=== PATIENT | female | born 1990 | race Caucasian/White ===

== ENCOUNTER 2018-05-04 02:32 | Inpatient (IN) ==
[2018-05-04 02:08] LABS: Amphetamine Screen,Urine Negative ng/mL (Cutoff=1000); Barbiturate Screen,Urine Negative ng/mL (Cutoff=200); Benzodiazepines Screen,Urine Negative ng/mL (Cutoff=200); Cannabinoid Screen,Urine Negative ng/mL (Cutoff = 50); Cocaine Screen,Urine Negative ng/mL (Cutoff= 300); Opiate Screen,Urine Negative ng/mL (Cutoff=300); Phencyclidine Screen,Urine Negative ng/mL (Cutoff=25)
[~2018-05-04 02:32] MED LIST: Famotidine 20 MG/2 ML VIAL IVP PRN; Metoclopramide 10 MG/2 ML VIAL IVP PRN; Naloxone 0.4 MG/ML INJ IVP PRN; Ringers Solution, Lactated 1,000 ML ONE
[2018-05-04] MEDS ORDERED: Bupivacaine-MPF 0.25% 10 ML VIAL EP ONE (02:45)
[2018-05-04] MEDS ORDERED: *HR* FentaNYL (PF) 100 MCG/2 ML VIAL EP ONE (02:45)
[2018-05-04] MEDS ORDERED: Epidural Premix (fent/bupiv) 110 ML EP SCH (02:45)
[2018-05-04] MEDS ORDERED: Ringers Solution, Lactated 1,000 ML IVC SCH (02:45)
--- NOTE | 2018-05-04 02:46 | OB/GYN History & Physical ---
Date of Encounter: 05/04/18 Time of Encounter: 02:41 Assessment and Plan (1) 39 weeks gestation of Current visit: Yes Status: Acute (2) Intrauterine Current visit: Yes Status: Acute Admit to L&D for observation of labor Expectant management Labs-CBC and clot to hold Continuous electronic monitoring Pain management plan is epidural Anticipate Dr. Stephenson is OB doll surgeon and is available as needed (3) Hepatitis C antibody test positive Current visit: Yes Status: Acute (4) complicated by subutex maintenance, antepartum Current visit: Yes Status: Acute Continue Subutex twice a day (5) Intact amniotic membranes during in third trimester Current visit: Yes Status: Acute History of Present Illness Chief complaint: Contraction HPI: Ms. Parisi is a 27 year old female 001 at 39 weeks 4 days gestation with an estimated date of of 05/07/18 dated by initial exam. She presents tonight with complaints of onset of contractions at noon on . She reports admit an 8 they became 3-5 minutes apart. Reports her membranes are intact. Her has been complicated by Suboxone use. She is also a smoker. She has been seen by Dr. Becerra throughout this . records are available electronically and have been reviewed. Labs: O+ GBS- Hep B- HIV- Rubella immune Varicella immune Past Med Surg Social Fam HX - Past Medical History Medical history: hepatitis Additional medical history: hep c Psychiatric history: no psych history - Past Surgical History Surgical History: no surgical history - Social History Smoking Status: Current every day smoker Packs per day: 1 Alcohol use: none Drug use: IV Drug Use - Family History Mother Age: 47 Living Status: Still Living Hx Family Cardiac Disorders: Yes (high chol) Hx Family Respiratory Disorders: No Hx Family Cancer: No Hx Family GI Disorders: No Hx Family Genitourinary Disorders: No Hx Family Endocrine Disorder: No Hx Family Musculoskeletal Disorders: No Hx Family Neuromuscular Disorders: No Hx Family Neurologic Disorders: No Hx Family HEENT Disorders: No Hx Family Autoimmune Disorders: No Hx Family Reproductive Disorders: No Hx Family Psychosocial Disorders: No Hx Family Medical Disorders: No Obstetrical History - Pregnancies : 2 Para: 1 Term: 1 (# 1: 07/12/2014,female, normal spontaneous vaginal delivery (), full term, no complications, 6lbs 4oz. ) : 0 Ab's: 0 Livin Medications and Allergies Formula Tablet 1 tab PO DAILY 05/04/18 [History] Suboxone 8 mg-2 mg Sl Film 8 mg SL BID 05/04/18 [History] 3 Allergy/AdvReac Type Severity Reaction Status Date / Time No Known Allergies Allergy Verified 05/04/18 01:46 Review of System OB All systems PM: reviewed and no additional remarkable complaints except as stated Exam - Vital Signs Vital signs: Initial Vital Signs Temp Pulse Resp BP 97.5 F L 93 15 127/82 05/04/18 01:30 05/04/18 01:30 05/04/18 01:30 05/04/18 01:30 - Constitutional Constitutional: well developed, well nourished, moderate distress - HEENT HEENT: PERRL, Normocephaly, Mucus Membranes Moist - Neck Neck exam: full ROM - Lungs Respiratory exam: CTAB - Cardiovascular Cardiovascular exam: RRR, +S1, +S2 - Breasts Breast: bilateral: normal - Abdomen Abdomen: Present: bowel sounds normal, gravid, non tender - Vulva Vulva: bilateral: normal - Vagina Vagina: Present: normal moisture - Cervix Dilation: 6 Results Result Diagrams: 05/04/18 02:58 All other labs normal. - VTE Reasons for not Prescribing Prophylaxis: Treatment not Indicated - Low risk for VTE
[2018-05-04] MEDS ORDERED: Lidocaine -MPF 2% 5 ML VIAL ONE (02:49)
[2018-05-04] MEDS ORDERED: Bupivacaine-MPF 0.25% 10 ML VIAL ONE (02:49)
[2018-05-04] MEDS ORDERED: Lidocaine/EPI 1:200k 2% PF 20 ML VIAL ONE (02:49)
[2018-05-04] MEDS ORDERED: *HR* FentaNYL (PF) 100 MCG/2 ML VIAL ONE (02:49)
[2018-05-04 03:01] LABS: Basophils % 0.2 %; Eosinophils % 0.3 %; Hematocrit 36.7 % (35.3-44.9); Hemoglobin 12.6 g/dL (11.5-15.4); Immature Granulocytes % 0.3 % (0-4); Lymphocytes # 3.2 K/mcL (0.6-4.6); Lymphocytes % 27.4 %; Mean Corpuscular HGB Conc 34.3 g/dL (31.6-35.5); Mean Corpuscular Hemoglobin 30.3 pg (28.0-33.3); Mean Corpuscular Volume 88.2 fL (83.0-100.0); Mean Platelet Volume 13.5 fL (9.4-12.4); Monocytes # 0.5 K/mcL (0.0-1.3); Monocytes % 4.7 %; Neutrophils # 7.7 K/mcL (1.6-8.9); Platelet Count 184 K/mcL (140-400); Red Blood Count 4.16 M/mcL (3.82-4.97); Red Cell Distribution Width 13.4 % (11.5-14.5); Segmented Neutrophils % 67.1 %
[2018-05-04 03:03] LABS: Platelet Estimate Normal (Normal)
[2018-05-04] MEDS ORDERED: Oxytocin 20 units/ LR 1000 mL 20 UNIT/1,000 ML BAG IVC ONE (03:37)
--- NOTE | 2018-05-04 03:43 | Anesthesia Evaluation PreOp ---
Date of Encounter: 05/04/18 Time of Encounter: 02:51 - Past History Planned Operation: labor epidural Cardiac History: Denies any Significant Hx Pulmonary History: Smoker (smokes 1/2ppd. 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 No FHAP. Previous epidural without problems.) : Yes Alcohol Use: none Drug use: IV Drug Use Medications and Allergies Formula Tablet 1 tab PO DAILY 05/04/18 [History] Suboxone 8 mg-2 mg Sl Film 8 mg SL BID 05/04/18 [History] 3 Allergy/AdvReac Type Severity Reaction Status Date / Time No Known Allergies Allergy Verified 05/04/18 01:46 - Meds/Allergy Pre-op Review Medications Reviewed: Yes Allergies Reviewed: Yes Beta Blockers on Current Med List: No Anesthesia Results - Labs 05/04/18 02:58 Anesthesia Exam 127/82, 96, 20. FHTs 130s. Height: 5'5" Weight: 63kg NPO (# of Hours): 8 Pain Scale: 10 Pain Scale Used: Numeric (1 - 10) - HEENT Pupil (Motor): Pupils equal Mallampati: II Teeth: Normal Oral Opening: Greater than 3 - SOLID W[employer]E FACILITY OPERATOR LOC: Oriented [employer]ID W[employer]E FACILITY OPERATOR Motor: Normal RUE, Normal LUE, Normal RLE, Normal LLE, Normal Face [employer] W[employer]E FACILITY OPERATOR Sensory: Normal: RUE, LUE, RLE, LLE, Face - Cardiac Rhythm: Regular - Pulmonary Breath Sounds: bilateral Clear Respiratory Effort: Symmetrical Anesthesia Assess/Plan ASA Score: 2 Modified Carmenza Scale for Level of Consciousness: Cooperative, oriented, and tranquil Anesthetic Plan: Regional Monitoring Plan: Standard Monitors
--- NOTE | 2018-05-04 03:47 | Anesthesia Procedures ---
Date of Encounter: 05/04/18 Time of Encounter: 02:51 Procedures: Anesthesia - Epidural/Spinal Patient ID/Chart reviewed: Yes Patient examined: Yes OB Eval: Gestational age: 39 OB Eval: : 2 OB Eval: Hx Para: 1 OB Eval: Dilated at (cm): 6 OB Eval: Contractions: Non-stressed pattern Consent Obtained: Yes Supplemental Oxygen: None/Room Air Site Prep: Aseptic Technique, Sterile prep and drape, Povidone-Iodine 1% Amount of Local Anesthetic used: 3 Touhy Needle Gauge: 18 Touhy Needle Depth (cm): 5 Catheter Depth at Skin (cm): 15 Test Dose (1.5% Lido + Epi): Volume given (mls): 3 Test Dose Result: Negative Loading Dose: 0.25% Marcaine (mls): 8 Loading Dose: Fentanyl (mcg): 100 Loading Dose Administered: Thru Catheter Infusion Med: 0.125% Bupivacaine w/ 2 mcg/ml Fentanyl Infusion Rate (mls/hr): [address]: Tegaderm, Tape Interspace Used: L3-L4 Loss of Resistance (ELSA): Yes Blood: No CSF: No Paresthesia: No Vitals + FHT's: 3 Vital Signs Time 0251 0311 0315 0320 0325 BP 127/82 129/98 121/68 132/70 121/66 Pulse 96 79 86 78 69 FHTs 130 130 130 130 130
--- NOTE | 2018-05-04 04:47 | OB/GYN Procedure Note ---
Delivery - Delivery Date: 05/04/18 Provider: Karolina Loo Intrapartum events: none Delivery induction: none Delivery augmentation: rupture of membranes Delivery monitor: external FHT, external uterine Anesthesia: epidural Quantitated Blood Loss: 300 - Infant (s) Infant A Infant Delivery Date: 05/04/18 Infant Delivery Time: 04:00 Presentation: vertex Position: YAEL (long arc rotation) Route of delivery: Gender: Male Viability: Viable Pounds: 7 Ounces: 1 Weight Gram: 3.205 kg at 1 minute: 8 at 5 mins: 9 Shoulder Dystocia: not encountered Specimens collected: cord blood Placenta: spontaneous Cord: 3 umbilical vessels - Repair Episiotomy: none Laceration Description: Labial (right - repaired with 4-0 monocryl) - Complications Delivery complications: none Delivery comments: This is a 27-year-old G2 now P2 who is admitted for active labor. She progressed with AROM to the second stage of labor. She pushed for 30 minutes. She delivered a viable male infant "YAEL Blackman over an intact perineum. The infant was placed on the maternal abdomen where he was allowed to transition spontaneously. No nuchal cord was identified. No shoulder dystocia was encountered. scores were 8 at 1 minute and 9 at 5 minutes. The weighed 7 lbs. 1 oz. (3205 g). The placenta delivered (Herrera) spontaneously, intact, with a three-vessel cord. Inspection revealed a right reveals laceration. Laceration was repaired with a 4-0 Monocryl. The uterus was firm with no active bleeding. The repair was done under epidural anesthesia. EBL was 300 mL. Placenta and umbilical artery blood gases were not sent. There were no complications during the procedure. Mom and baby are skin to skin following delivery. - Disposition Mom disposition: stable in LDR Roberta disposition: stable in LDR
[2018-05-04] MEDS ORDERED: Acetaminophen 325 MG TABLET PO PRN (06:50)
[2018-05-04] MEDS ORDERED: Oxytocin 20 units/ LR 1000 mL 20 UNIT/1,000 ML BAG IVC SCH (06:50)
[2018-05-04] MEDS: Ibuprofen 600 MG TABLET PO PRN ×2 (08:13→15:11)
[2018-05-04] MEDS: Prenatal Vit/FA 1 EACH TABLET PO SCH (08:13)
[2018-05-05 08:02] VITALS: BP 116/62
[2018-05-05] MEDS: Prenatal Vit/FA 1 EACH TABLET PO SCH (08:15)
[2018-05-05] MEDS: Ibuprofen 600 MG TABLET PO PRN (08:19)
--- NOTE | 2018-05-05 09:50 | Discharge Summary ---
Date of Encounter: 05/05/18 Time of Encounter: 09:47 - Discharge Diagnosis (1) Vaginal delivery Priority: Primary Status: Acute Comments: Stable in PP, pain well managed on po pain medication, tolerates diet, bottle feeding, desires discharge - Discharge Medications Prescriptions: Ibuprofen [Motrin] 600 mg PO Q6HR PRN #60 tablet PRN Reason: Cramping Docusate [Colace] 100 mg PO BID #30 capsule Home Medications: Formula Tablet 1 tab PO DAILY 05/04/18 [History] Suboxone 8 mg-2 mg Sl Film 8 mg SL BID 05/04/18 [History] Acetaminophen [Tylenol] 650 mg PO Q6HR PRN tablet 05/05/18 [Rx] Docusate [Colace] 100 mg PO BID #30 capsule 05/05/18 [Rx] Ibuprofen [Motrin] 600 mg PO Q6HR PRN #60 tablet 05/05/18 [Rx] Vit/FA 1 each PO DAILY tablet 05/05/18 [Rx] Allergies/Adverse Reactions: 3 Allergy/AdvReac Type Severity Reaction Status Date / Time No Known Allergies Allergy Verified 05/04/18 01:46 Data Procedures and tests throughout hospitalization: Laboratory Tests 05/04/18 05/04/18 01:26 02:58 WBC 11.5 H RBC 4.16 Hgb 12.6 Hct 36.7 MCV 88.2 MCH 30.3 MCHC 34.3 RDW 13.4 Plt Count 184 MPV 13.5 H Immature Gran % 0.3 Seg Neutrophils % 67.1 Lymphocytes % 27.4 Monocytes % 4.7 Eosinophils % 0.3 Basophils % 0.2 Neutrophils # 7.7 Lymphocytes # 3.2 Monocytes # 0.5 Eosinophils # 0.0 Basophils # 0.0 Platelet Estimate Normal Urine Opiates Screen Negative Ur Barbiturates Screen Negative Ur Phencyclidine Scrn Negative Ur Amphetamines Screen Negative U Benzodiazepines Scrn Negative Urine Cocaine Screen Negative U Marijuana (THC) Screen Negative Ur Drug Screen Interp See Below Date of admission: 05/04/18 02:32 Primary care physician: PCP NONE Consults: 05/04/18 06:50 Consult to [facility] [CONS] Routine Comment: Vaginal delivery, consult needed Discharging clinician: Sosa Serrano Anticipated date of discharge: 05/05/18 - Patient Status Disposition: Home, Self-Care Condition: Good Functional capacity at discharge: independent ambulation Overall status at discharge: patient is progressing back to baseline - Discharge Instructions Follow Up With: NONE,PCP [Primary Care Provider] - Yoko Savage MD [Partnered Physician] - - Diet and Activity Activity: resume usual activities as tolerated Diet: regular diet Hospital Course Reason for admission: active labor Delivery: Episiotomy: none Laceration: other Other procedures: none complications: none Discharge diagnosis: IUP at term delivered [place] baby: male Hospital course: Delivery - Delivery Date: 05/04/18 Provider: Karolina Loo Intrapartum events: none Delivery induction: none Delivery augmentation: rupture of membranes Delivery monitor: external FHT, external uterine Anesthesia: epidural Quantitated Blood Loss: 300 - (s) A Infant Delivery Date: 05/04/18 Infant Delivery Time: 04:00 Presentation: vertex Position: YAEL (long arc rotation) Route of delivery: Gender: Male Viability: Viable Pounds: 7 Ounces: 1 Weight Gram: 3.205 kg at 1 minute: 8 at 5 mins: 9 Shoulder Dystocia: not encountered Specimens collected: cord blood Placenta: spontaneous Cord: 3 umbilical vessels - Repair Episiotomy: none Laceration Description: Labial (right - repaired with 4-0 monocryl) - Complications Delivery complications: none Delivery comments: This is a 27-year-old G2 now P2 who is admitted for active labor. She progressed with AROM to the second stage of labor. She pushed for 30 minutes. She delivered a viable male "Hua"YAEL over an intact perineum. The infant was placed on the maternal abdomen where he was allowed to transition spontaneously. No nuchal cord was identified. No shoulder dystocia was encountered. scores were 8 at 1 minute and 9 at 5 minutes. The weighed 7 lbs. 1 oz. (3205 g). The placenta delivered (Herrera) spontaneously, intact, with a three-vessel cord. Inspection revealed a right reveals laceration. Laceration was repaired with a 4-0 Monocryl. The uterus was firm with no active bleeding. The repair was done under epidural anesthesia. EBL was 300 mL. Placenta and umbilical artery blood gases were not sent. There were no complications during the procedure. Mom and baby are skin to skin following delivery. - Disposition Mom disposition: stable in PP and appropriate for discharge Time Attestation: Total time spent providing and/or coordinating discharge services: Time Spent: Less than 30 minutes Exam - Constitutional Vitals: Temp Pulse Resp BP Pulse Ox 97.6 F 62 16 116/62 99 05/05/18 08:00 05/05/18 08:00 05/05/18 08:00 05/05/18 08:00 05/05/18 04:00 General appearance IM: A&O X 3 - Respiratory Respiratory exam: Present: CTAB - Cardiovascular Cardiovascular exam IM: Present: RRR - GI/Abdominal GI/Abdominal exam IM: soft - Uterine Tone: Firm Uterus Position: 3 Fingers Below Umbilicus - Extremities Exam Extremities exam IM: Present: normal capillary refill, normal inspection - Neurological Exam Neurological exam: normal gait, oriented X3 - Psychiatric Additional comments: reports good mood
== END 2018-05-05 12:30 | disposition home or self-care (01) | DRG 560 ==
LOC: 1NENULAB → 1NENUOBS 06:43
PROVIDERS: ADMIT Advanced Practice Midwife; ATTEND Advanced Practice Midwife

== ENCOUNTER 2020-10-20 07:53 | Inpatient (IN) ==
[2020-10-20] MEDS ORDERED: Famotidine 20 MG/2 ML VIAL IVP PRN (08:46)
[2020-10-20] MEDS ORDERED: Metoclopramide 10 MG/2 ML VIAL IVP PRN (08:46)
[2020-10-20] MEDS ORDERED: Naloxone 0.4 MG/ML INJ IVP PRN (08:46)
[2020-10-20] MEDS ORDERED: Azithromycin 500 MG in 0.9 % Sodium Chloride 250 ML IVPB PRN (08:46)
[2020-10-20] MEDS ORDERED: Lidocaine 1% 20 ML MDV INFILT PRN (08:46)
[2020-10-20] MEDS ORDERED: Ondansetron 4 MG/2 ML VIAL IVP PRN (08:46)
[2020-10-20] MEDS ORDERED: miSOPROStoL 25 MCG TABLET PO PRN (08:50)
[2020-10-20] MEDS ORDERED: Penicillin G Potassium 5,000,000 UNIT in 0.9 % Sodium Chloride Mini Bag 100 ML IVPB ONE (08:51)
[2020-10-20] MEDS ORDERED: Oxytocin 20 units/ LR 1000 mL 20 UNIT/1,000 ML BAG IVC SCH ×2 (09:00→21:00)
[2020-10-20 09:31] LABS: Basophils % 0.3 %; Eosinophils # 0.1 K/mcL (0.0-0.6); Eosinophils % 1.7 %; Hemoglobin 10.9 g/dL (11.5-15.4); Immature Granulocytes % 0.9 % (0-4); Lymphocytes # 2.2 K/mcL (0.6-4.6); Lymphocytes % 33.6 %; Mean Corpuscular HGB Conc 34.1 g/dL (31.6-35.5); Mean Corpuscular Hemoglobin 30.4 pg (28.0-33.3); Mean Corpuscular Volume 89.4 fL (83.0-100.0); Monocytes # 0.5 K/mcL (0.0-1.3); Monocytes % 6.9 %; Neutrophils # 3.8 K/mcL (1.6-8.9); Platelet Count 191 K/mcL (140-400); Red Blood Count 3.58 M/mcL (3.82-4.97); Red Cell Distribution Width 14.1 % (11.5-14.5); Segmented Neutrophils % 56.6 %; White Blood Count 6.6 K/mcL (4.3-11.1)
[2020-10-20] MEDS: Ringers Solution, Lactated 1,000 ML IVC SCH ×3 (09:37→17:51)
[2020-10-20 10:18] LABS: Amphetamine Screen,Urine Negative ng/mL (Cutoff=1000); Barbiturate Screen,Urine Negative ng/mL (Cutoff=200); Benzodiazepines Screen,Urine Negative ng/mL (Cutoff=200); Cannabinoid Screen,Urine Negative ng/mL (Cutoff = 50); Cocaine Screen,Urine Negative ng/mL (Cutoff= 300); Opiate Screen,Urine Negative ng/mL (Cutoff=300); Phencyclidine Screen,Urine Negative ng/mL (Cutoff=25)
[2020-10-20] MEDS ORDERED: EPHEDrine 50 MG/ML VIAL IVP PRN (10:56)
[2020-10-20] MEDS ORDERED: *HR* FentaNYL (PF) 100 MCG/2 ML VIAL EP ONE (10:56)
[2020-10-20] MEDS ORDERED: Ropivacaine/PF 0.2% 20 ML VIAL EP ONE (10:56)
[2020-10-20] MEDS ORDERED: Epidural Premix (fent/bupiv) 110 ML EP SCH (11:00)
[2020-10-20 11:04] LABS: Influenza A PCR Negative (Negative); Influenza B PCR Negative (Negative); Resp. Syncytial Virus PCR Negative (Negative); SARS-CoV-2 by PCR (In House) Negative (Negative)
[2020-10-20] MEDS ORDERED: *HR* FentaNYL (PF) 100 MCG/2 ML VIAL ONE (13:32)
[2020-10-20] MEDS: Penicillin G Potassium 2,500,000 UNIT in 0.9 % Sodium Chloride 100 ML IVPB SCH ×2 (13:58→17:51)
[2020-10-20] MEDS ORDERED: Acetaminophen 325 MG TABLET PO PRN (20:54)
[2020-10-20] MEDS ORDERED: Measles/Mumps/Rubella Vacc 0.5 ML VIAL SQ PRN (20:54)
[2020-10-20] MEDS ORDERED: Rho Immune Globulin 1,500 UNIT SYRINGE IM PRN (20:54)
[2020-10-20] MEDS: Ibuprofen 600 MG TABLET PO PRN (23:45)
[2020-10-21 04:53] LABS: Basophils % 0.2 %; Eosinophils # 0.2 K/mcL (0.0-0.6); Eosinophils % 1.4 %; Hematocrit 29.7 % (35.3-44.9); Hemoglobin 10.1 g/dL (11.5-15.4); Immature Granulocytes % 0.5 % (0-4); Lymphocytes # 2.6 K/mcL (0.6-4.6); Lymphocytes % 24.6 %; Mean Corpuscular Hemoglobin 30.5 pg (28.0-33.3); Mean Corpuscular Volume 89.7 fL (83.0-100.0); Mean Platelet Volume 11.4 fL (9.4-12.4); Monocytes # 0.9 K/mcL (0.0-1.3); Monocytes % 8.2 %; Neutrophils # 6.8 K/mcL (1.6-8.9); Platelet Count 178 K/mcL (140-400); Red Blood Count 3.31 M/mcL (3.82-4.97); Segmented Neutrophils % 65.1 %
[2020-10-21 04:54] LABS: White Blood Count 10.4 K/mcL (4.3-11.1)
[2020-10-21 07:48] VITALS: BP 100/65
[2020-10-21] MEDS: Ibuprofen 600 MG TABLET PO PRN (08:01)
[2020-10-21] MEDS ORDERED: Prenatal Vit/FA 1 EACH TABLET PO SCH (09:00)
== END 2020-10-21 12:31 | disposition home or self-care (01) | DRG 560 ==
LOC: 1NENULAB 07:53 → 1NENUOBS 22:45
PROVIDERS: ADMIT Student in an Organized Health Care Education/Training Program; ATTEND Student in an Organized Health Care Education/Training Program